=== PATIENT | male | born 1970 | race Caucasian/White ===

== ENCOUNTER 2021-06-19 16:36 | Emergency (ER) | payer BC | END 2021-06-19 18:50 | disposition home or self-care (01) | LOC: CSHERS 16:36 | DX: M25.561 Pain in right knee (principal); M25.461 Effusion, right knee; I10 Essential (primary) hypertension; E11.9 Type 2 diabetes mellitus without complications; E03.9 Hypothyroidism, unspecified; I25.2 Old myocardial infarction; X50.1XXA Overexertion from prolonged static or awkward postures, initial encounter; Y92.003 Bedroom of unspecified non-institutional (private) residence as the place of occurrence of the external cause; Z95.5 Presence of coronary angioplasty implant and graft; Z79.82 Long term (current) use of aspirin; Z79.84 Long term (current) use of oral hypoglycemic drugs; Z79.899 Other long term (current) drug therapy | CPT/HCPCS: 99283 ==

== ENCOUNTER 2021-06-20 16:54 | Inpatient (IN) | payer BC ==
[2021-06-20] MEDS ORDERED: Cefepime 2 GM VIAL ONE (18:35)
[2021-06-20] MEDS ORDERED: Ketorolac Tromethamine 30 MG/ML VIAL ONE (18:35)
[2021-06-20 18:50] LABS: #Eosinphils 0.1 10x3/uL (0.0-0.5); %Basophils 0.3 % (0.0-2.0); %Eosinophils 0.8 % (0.0-6.0); %Lymphocytes 13.1 % (18.0-47.0); %Monocytes 10.2 % (0.0-10.0); %Neutrophils 75.2 % (40.0-75.0); Hemoglobin 13.8 g/dL (13.5-17.5); Mean Corpuscular HGB CONC 34.7 g/dL (32.0-36.0); Mean Corpuscular Hemoglobin 30.8 pg (27.0-33.0); Mean Corpuscular Volume 88.8 fl (81.2-95.1); Mean Platelet Volume 10.9 fl (7.4-10.4); Platelet Count 141 10x3/uL (150-450); Red Blood Cell (RBC) Count 4.48 10x6/uL (4.32-5.72); White Blood Cell (WBC) Count 9.3 10x3/uL (3.5-10.5)
[2021-06-20 18:54] LABS: ALT (SGPT) 19 U/L (8-55); AST (SGOT) 11 U/L (5-34); Albumin 4.2 g/dL (3.5-5.0); Alkaline Phosphatase 57 U/L (40-110); Anion Gap 17 mmol/L (10-20); BUN (Urea Nitrogen) 12 mg/dL (8.4-25.7); Bilirubin, Total 1.8 mg/dL (0.2-1.2); Calc. Creatinine Clearance 157 mL/min (70-130); Calcium 9.2 mg/dL (7.8-10.44); Carbon Dioxide 24 mmol/L (22-29); Chloride 97 mmol/L (98-107); Globulin 2.4 g/dL (2.4-3.5); Glucose 200 mg/dL (70-105); Potassium 3.1 mmol/L (3.5-5.1); Protein, Total 6.6 g/dL (6.0-8.3); Sodium 135 mmol/L (136-145)
[2021-06-20] MEDS ORDERED: VANCOMYCIN 2 GRAM/400 ML BAG 2 GM in Premix Bag 1 BAG IVPB SCH (19:00)
[2021-06-20] MEDS ORDERED: Acetaminophen 325 MG TAB PO PRN (19:56)
[2021-06-20] MEDS ORDERED: Ondansetron PF 4 MG/2 ML Vial IVP PRN (19:56)
[2021-06-20] MEDS ORDERED: Zolpidem Tartrate 5 MG TAB PO PRN (19:56)
[2021-06-20] MEDS ORDERED: Calcium Carbonate 500 MG ChewTAB PO PRN (19:56)
[2021-06-20] MEDS ORDERED: Dextrose 5% in Water 1,000 ML IV PRN (20:00)
[2021-06-20] MEDS ORDERED: Dextrose 50% Abboject 50 ML SYRINGE SLOW IVP PRN (20:00)
[2021-06-20] MEDS ORDERED: hydrALAZINE 20 MG/ML VIAL SLOW IVP PRN (20:01)
[2021-06-20 20:05] LABS: BF Color Yellow; Body Fluid Source Synovial Fluid; Clarity Cloudy/Turbid (Clear); Tube # 1
[2021-06-20] MEDS ORDERED: Potassium Chloride 20 MEQ TAB PO SCH (20:30)
[2021-06-20] MEDS: Rosuvastatin 20 MG TAB PO SCH (21:03)
[2021-06-20] MEDS: HYDROcodone/Acetaminophen 5/325 mg Tablet PO PRN (21:03)
[2021-06-20] MEDS: Lactated Ringer's 1,000 ML IV SCH (21:05)
[2021-06-20] MEDS: Famotidine/PF 20 mg/2ml Vial SLOW IVP SCH (21:05)
[2021-06-20] MEDS: HumaLOG 300 UNITS/3 ML VIAL SC PRN (21:06)
[2021-06-20 21:27] LABS: Lactic Acid 2.3 mmol/L (0.5-2.2)
[2021-06-20] MEDS: Morphine 4 MG/ML VIAL SLOW IVP PRN (23:52)
[2021-06-21 00:03] VITALS: BMI 38.3
[2021-06-21 00:10] LABS: SARS-CoV-2 NAA Rapid Test Not Detected (NotDetected)
[2021-06-21] MEDS: HYDROcodone/Acetaminophen 5/325 mg Tablet PO PRN (00:44)
[2021-06-21] MEDS ORDERED: HYDROmorphone 0.5 MG/0.5 ML SYRINGE SLOW IVP SCH ×2 (01:00→07:15)
[2021-06-21] MEDS: Lactated Ringer's 1,000 ML IV SCH ×3 (04:27→19:28)
[2021-06-21] MEDS: Morphine 4 MG/ML VIAL SLOW IVP PRN ×4 (04:29→23:40)
[2021-06-21] MEDS ORDERED: Cefepime 2 GM in Sodium Chloride 0.9% 100 ML IVPB SCH (06:00)
[2021-06-21] MEDS: Levothyroxine Sodium 112 MCG TAB PO SCH (06:10)
[2021-06-21] MEDS: Levothyroxine Sodium 25 MCG TAB PO SCH (06:10)
[2021-06-21] MEDS: Atenolol 25 MG TAB PO SCH (06:11)
[2021-06-21] MEDS ORDERED: Ketorolac Tromethamine 30 MG/ML VIAL IVP SCH (07:15)
[2021-06-21] MEDS ORDERED: Neomycin-Polymyxin 1 ML AMP ONE ×2 (07:24→08:57)
[2021-06-21] MEDS ORDERED: Bupivacaine PF 0.5% 30 ML VIAL ONE (07:38)
[2021-06-21] MEDS ORDERED: EPINEPHrine 1 MG/ML AMP ONE (07:38)
[2021-06-21] MEDS: VANCOMYCIN 2 GRAM/400 ML BAG 2 GM in Premix Bag 1 BAG IVPB SCH ×2 (07:59→20:22)
[2021-06-21] MEDS: Glimepiride 2 MG TAB PO SCH (07:59)
[2021-06-21] MEDS ORDERED: HYDROcodone/Acetaminophen 5/325 mg Tablet PO PRN (08:00)
[2021-06-21] MEDS ORDERED: Morphine 4 MG/ML VIAL ONE (08:40)
[2021-06-21 08:58] LABS: Lactic Acid 1.9 mmol/L (0.5-2.2)
[2021-06-21 09:05] LABS: ALT (SGPT) 15 U/L (8-55); AST (SGOT) 11 U/L (5-34); Albumin 3.8 g/dL (3.5-5.0); Alkaline Phosphatase 55 U/L (40-110); Anion Gap 17 mmol/L (10-20); BUN (Urea Nitrogen) 9 mg/dL (8.4-25.7); Bilirubin, Total 1.3 mg/dL (0.2-1.2); Calc. Creatinine Clearance 172 mL/min (70-130); Calcium 8.9 mg/dL (7.8-10.44); Carbon Dioxide 26 mmol/L (22-29); Chloride 101 mmol/L (98-107); Globulin 2.3 g/dL (2.4-3.5); Glucose 196 mg/dL (70-105); Potassium 3.6 mmol/L (3.5-5.1); Protein, Total 6.1 g/dL (6.0-8.3); Sodium 140 mmol/L (136-145)
[2021-06-21 09:06] LABS: #Eosinphils 0.1 10x3/uL (0.0-0.5); #Monocytes 1.1 10x3/uL (0.0-1.1); #Neutrophils 5.5 10x3/uL (1.5-8.4); %Basophils 0.4 % (0.0-2.0); %Eosinophils 1.2 % (0.0-6.0); %Lymphocytes 14.6 % (18.0-47.0); %Monocytes 13.4 % (0.0-10.0); Hemoglobin 12.9 g/dL (13.5-17.5); Mean Corpuscular HGB CONC 33.7 g/dL (32.0-36.0); Mean Corpuscular Hemoglobin 30.8 pg (27.0-33.0); Mean Corpuscular Volume 91.4 fl (81.2-95.1); Mean Platelet Volume 11.2 fl (7.4-10.4); Platelet Count 125 10x3/uL (150-450); RBC Distribution Width 12.4 % (11.5-14.5); Red Blood Cell (RBC) Count 4.19 10x6/uL (4.32-5.72); White Blood Cell (WBC) Count 7.8 10x3/uL (3.5-10.5)
[2021-06-21] MEDS ORDERED: PROPOFOL 20 ML ONE (09:48)
[2021-06-21] MEDS ORDERED: Fentanyl 100 MCG/2 ML VIAL ONE (09:48)
[2021-06-21] MEDS ORDERED: Lidocaine 2% PF 5 ML VIAL ONE (09:49)
[2021-06-21] MEDS ORDERED: Dexamethasone 4 mg/ml Vial ONE (10:33)
[2021-06-21] MEDS ORDERED: Ondansetron PF 4 MG/2 ML Vial ONE (10:33)
[2021-06-21] MEDS ORDERED: Ketorolac Tromethamine 30 MG/ML VIAL ONE (10:33)
[2021-06-21] MEDS ORDERED: HYDROmorphone 0.5 MG/0.5 ML SYRINGE ONE (11:27)
[2021-06-21] MEDS ORDERED: HYDROcodone/Acetaminophen 10/325 mg Tablet PO PRN (11:40)
[2021-06-21] MEDS: Amlodipine 10 MG TAB PO SCH (14:38)
[2021-06-21] MEDS: Fish Oil 1,000 MG CAP PO SCH (14:39)
[2021-06-21] MEDS: Famotidine/PF 20 mg/2ml Vial SLOW IVP SCH ×2 (14:39→20:23)
[2021-06-21] MEDS: Venlafaxine XR 37.5 MG CAP PO SCH (14:39)
[2021-06-21] MEDS: Lisinopril 20 MG TAB PO SCH (14:39)
[2021-06-21] MEDS: Aspirin 81 mg Enteric Coated Tablet PO SCH (14:39)
[2021-06-21] MEDS: ceFAZolin Sodium/D5W 2 GM in Premix Bag 1 BAG IVPB SCH ×2 (15:35→22:09)
[2021-06-21] MEDS: HYDROcodone/Acetaminophen 10/325 mg Tablet PO PRN ×2 (16:05→20:27)
[2021-06-21] MEDS: Enoxaparin Sodium 40 MG/0.4 ML SYRINGE SC SCH (20:22)
[2021-06-21] MEDS: Rosuvastatin 20 MG TAB PO SCH (20:23)
[2021-06-21] MEDS: Rifampin 300 MG CAP PO SCH (22:22)
[2021-06-22] MEDS: HumaLOG 300 UNITS/3 ML VIAL SC PRN ×4 (01:22→23:13)
[2021-06-22] MEDS: HYDROcodone/Acetaminophen 10/325 mg Tablet PO PRN ×5 (01:23→17:18)
[2021-06-22] MEDS: Lactated Ringer's 1,000 ML IV SCH (03:19)
[2021-06-22] MEDS: Morphine 4 MG/ML VIAL SLOW IVP PRN ×5 (03:23→23:34)
[2021-06-22 04:41] LABS: Mean Corpuscular HGB CONC 33.7 g/dL (32.0-36.0); Mean Corpuscular Hemoglobin 31.3 pg (27.0-33.0); Mean Corpuscular Volume 92.6 fl (81.2-95.1); Mean Platelet Volume 11.4 fl (7.4-10.4); Platelet Count 124 10x3/uL (150-450); RBC Distribution Width 12.5 % (11.5-14.5); Red Blood Cell (RBC) Count 3.52 10x6/uL (4.32-5.72); White Blood Cell (WBC) Count 5.7 10x3/uL (3.5-10.5)
[2021-06-22] MEDS: Levothyroxine Sodium 112 MCG TAB PO SCH (05:28)
[2021-06-22] MEDS: Levothyroxine Sodium 25 MCG TAB PO SCH (05:28)
[2021-06-22] MEDS: ceFAZolin Sodium/D5W 2 GM in Premix Bag 1 BAG IVPB SCH ×3 (06:20→22:57)
[2021-06-22 07:33] LABS: Vancomycin, Trough 8.6 ug/mL
[2021-06-22] MEDS ORDERED: FLU VACC QS2021-22(6MOS UP)/PF 60 MCG/0.5 ML SYRINGE IM ONE (09:00)
[2021-06-22] MEDS: Fish Oil 1,000 MG CAP PO SCH (09:23)
[2021-06-22] MEDS: Rifampin 300 MG CAP PO SCH ×2 (09:23→22:56)
[2021-06-22] MEDS: Amlodipine 10 MG TAB PO SCH ×2 (09:24→22:55)
[2021-06-22] MEDS: Aspirin 81 mg Enteric Coated Tablet PO SCH (09:24)
[2021-06-22] MEDS: Lisinopril 20 MG TAB PO SCH (09:24)
[2021-06-22] MEDS: Famotidine/PF 20 mg/2ml Vial SLOW IVP SCH ×2 (09:25→22:56)
[2021-06-22] MEDS: Atenolol 25 MG TAB PO SCH (09:25)
[2021-06-22] MEDS: Glimepiride 2 MG TAB PO SCH (09:25)
[2021-06-22] MEDS: Venlafaxine XR 37.5 MG CAP PO SCH (09:25)
[2021-06-22] MEDS: VANCOMYCIN 1.75 GM/350 ML BAG 1.75 GM in Premix Bag 1 BAG IVPB SCH ×2 (09:38→17:19)
[2021-06-22] MEDS: Ketorolac Tromethamine 30 MG/ML VIAL IVP SCH ×2 (11:58→17:44)
[2021-06-22] MEDS ORDERED: tiZANidine HCl 4 MG TAB PO PRN (14:27)
[2021-06-22] MEDS ORDERED: Morphine 50 MG in Sodium Chloride 0.9% 45 ML IVPB SCH (14:45)
[2021-06-22] MEDS ORDERED: diphenhydrAMINE 50 MG/ML VIAL IM/IV PRN (15:30)
[2021-06-22] MEDS ORDERED: Promethazine HCl 25 MG/ML VIAL IM PRN (15:30)
[2021-06-22] MEDS ORDERED: diphenhydrAMINE 25 MG CAP PO PRN (15:30)
[2021-06-22] MEDS: Senokot S 8.6-50 MG TAB PO PRN (17:19)
[2021-06-22] MEDS: Enoxaparin Sodium 40 MG/0.4 ML SYRINGE SC SCH (22:56)
[2021-06-22] MEDS: Rosuvastatin 20 MG TAB PO SCH (22:56)
[2021-06-23] MEDS: Senokot S 8.6-50 MG TAB PO PRN (00:18)
[2021-06-23] MEDS: Ketorolac Tromethamine 30 MG/ML VIAL IVP SCH ×5 (00:35→23:13)
[2021-06-23] MEDS: VANCOMYCIN 1.75 GM/350 ML BAG 1.75 GM in Premix Bag 1 BAG IVPB SCH (01:00)
[2021-06-23] MEDS: Morphine 4 MG/ML VIAL SLOW IVP PRN ×5 (02:58→21:01)
[2021-06-23] MEDS ORDERED: Morphine 4 MG/ML VIAL SLOW IVP SCH (03:30)
[2021-06-23 05:44] LABS: Anion Gap 14 mmol/L (10-20); BUN (Urea Nitrogen) 9 mg/dL (8.4-25.7); Calc. Creatinine Clearance 159 mL/min (70-130); Calcium 8.4 mg/dL (7.8-10.44); Carbon Dioxide 29 mmol/L (22-29); Chloride 97 mmol/L (98-107); Glucose 294 mg/dL (70-105); Sodium 136 mmol/L (136-145)
[2021-06-23 06:03] LABS: Hemoglobin 10.7 g/dL (13.5-17.5); Mean Corpuscular HGB CONC 33.4 g/dL (32.0-36.0); Mean Corpuscular Hemoglobin 31.1 pg (27.0-33.0); Mean Platelet Volume 11.5 fl (7.4-10.4); Platelet Count 133 10x3/uL (150-450); RBC Distribution Width 12.6 % (11.5-14.5); Red Blood Cell (RBC) Count 3.44 10x6/uL (4.32-5.72); White Blood Cell (WBC) Count 4.1 10x3/uL (3.5-10.5)
[2021-06-23] MEDS: ceFAZolin Sodium/D5W 2 GM in Premix Bag 1 BAG IVPB SCH ×3 (06:46→21:10)
[2021-06-23] MEDS: HYDROcodone/Acetaminophen 10/325 mg Tablet PO PRN ×5 (06:55→23:06)
[2021-06-23] MEDS: Glimepiride 2 MG TAB PO SCH (06:56)
[2021-06-23] MEDS: Levothyroxine Sodium 112 MCG TAB PO SCH (06:56)
[2021-06-23] MEDS: HumaLOG 300 UNITS/3 ML VIAL SC PRN ×4 (06:56→21:17)
[2021-06-23] MEDS: Levothyroxine Sodium 25 MCG TAB PO SCH (06:56)
[2021-06-23 07:08] LABS: Band 13 % (5-11); Eosinophils 1 % (0-10); Lymphocytes 23 % (21-51); Neutrophil 45 % (42-75); Reactive Lymphocytes 3 % (0-10)
[2021-06-23 07:09] LABS: Monocytes 13 % (0-10)
[2021-06-23 07:10] LABS: Large Platelets SLIGHT; Platelet Morphology Comment Appears Decreased
[2021-06-23 07:12] LABS: MDiff Complete? YES; RBC Morphology Normal
[2021-06-23 08:03] LABS: Vancomycin, Trough 21.1 ug/mL
[2021-06-23] MEDS ORDERED: LEVOTHYROXINE SODIUM 137 MCG PO SCH (09:00)
[2021-06-23] MEDS ORDERED: Fish Oil 1,000 MG CAP PO SCH (09:00)
[2021-06-23] MEDS: Clopidogrel Bisulfate 75 MG TAB PO SCH (09:03)
[2021-06-23] MEDS: Venlafaxine HCl XR 75 MG CAP PO SCH (09:03)
[2021-06-23] MEDS: Lisinopril 20 MG TAB PO SCH (09:03)
[2021-06-23] MEDS: Rifampin 300 MG CAP PO SCH ×2 (09:03→21:08)
[2021-06-23] MEDS: Fish Oil 1,000 MG CAP PO SCH (09:03)
[2021-06-23] MEDS: Aspirin 81 mg Enteric Coated Tablet PO SCH (09:04)
[2021-06-23] MEDS: Famotidine/PF 20 mg/2ml Vial SLOW IVP SCH ×2 (09:04→21:04)
[2021-06-23] MEDS: Amlodipine 10 MG TAB PO SCH ×2 (09:04→21:06)
[2021-06-23] MEDS: Atenolol 50 MG TAB PO SCH (09:04)
[2021-06-23] MEDS: Vancomycin 1.5 GRAM/300 ML BAG 1.5 GM in Premix Bag 1 BAG IVPB SCH (17:03)
[2021-06-23] MEDS: Rosuvastatin 20 MG TAB PO SCH (21:08)
[2021-06-23] MEDS: Enoxaparin Sodium 40 MG/0.4 ML SYRINGE SC SCH (21:10)
[2021-06-24] MEDS: Morphine 4 MG/ML VIAL SLOW IVP PRN ×4 (01:15→17:47)
[2021-06-24] MEDS: Vancomycin 1.5 GRAM/300 ML BAG 1.5 GM in Premix Bag 1 BAG IVPB SCH ×2 (01:15→09:27)
[2021-06-24] MEDS: HYDROcodone/Acetaminophen 10/325 mg Tablet PO PRN ×3 (03:05→20:11)
[2021-06-24] MEDS: HumaLOG 300 UNITS/3 ML VIAL SC PRN ×4 (05:18→20:34)
[2021-06-24] MEDS: ceFAZolin Sodium/D5W 2 GM in Premix Bag 1 BAG IVPB SCH ×3 (05:26→22:05)
[2021-06-24] MEDS: Levothyroxine Sodium 25 MCG TAB PO SCH (06:01)
[2021-06-24] MEDS: Levothyroxine Sodium 112 MCG TAB PO SCH (06:01)
[2021-06-24] MEDS: Ketorolac Tromethamine 30 MG/ML VIAL IVP SCH ×3 (06:08→18:29)
[2021-06-24 06:19] LABS: Hemoglobin 10.9 g/dL (13.5-17.5); Mean Corpuscular HGB CONC 32.2 g/dL (32.0-36.0); Mean Corpuscular Hemoglobin 30.8 pg (27.0-33.0); Mean Corpuscular Volume 95.5 fl (81.2-95.1); Mean Platelet Volume 11.7 fl (7.4-10.4); Platelet Count 173 10x3/uL (150-450); RBC Distribution Width 12.5 % (11.5-14.5); Red Blood Cell (RBC) Count 3.54 10x6/uL (4.32-5.72)
[2021-06-24] MEDS: Clopidogrel Bisulfate 75 MG TAB PO SCH (09:18)
[2021-06-24] MEDS: Fish Oil 1,000 MG CAP PO SCH (09:18)
[2021-06-24] MEDS: Lisinopril 20 MG TAB PO SCH (09:19)
[2021-06-24] MEDS: Amlodipine 10 MG TAB PO SCH ×2 (09:19→20:11)
[2021-06-24] MEDS: Venlafaxine HCl XR 75 MG CAP PO SCH (09:19)
[2021-06-24] MEDS: Aspirin 81 mg Enteric Coated Tablet PO SCH (09:20)
[2021-06-24] MEDS: Atenolol 50 MG TAB PO SCH (09:20)
[2021-06-24] MEDS: Glimepiride 2 MG TAB PO SCH (09:21)
[2021-06-24] MEDS: Famotidine/PF 20 mg/2ml Vial SLOW IVP SCH ×2 (09:22→20:10)
[2021-06-24] MEDS: Rifampin 300 MG CAP PO SCH ×2 (09:28→22:06)
[2021-06-24 11:14] LABS: Fungus Stain Final report (.)
[2021-06-24] MEDS ORDERED: Morphine 4 MG/ML VIAL SLOW IVP PRN (15:55)
[2021-06-24 16:19] LABS: Vancomycin, Trough 22.2 ug/mL
[2021-06-24] MEDS: Enoxaparin Sodium 40 MG/0.4 ML SYRINGE SC SCH (20:10)
[2021-06-24] MEDS: Rosuvastatin 20 MG TAB PO SCH (20:10)
[2021-06-25] MEDS: Morphine 4 MG/ML VIAL SLOW IVP PRN ×3 (00:26→13:06)
[2021-06-25] MEDS: Ketorolac Tromethamine 30 MG/ML VIAL IVP SCH ×4 (01:40→17:16)
[2021-06-25] MEDS: ceFAZolin Sodium/D5W 2 GM in Premix Bag 1 BAG IVPB SCH (06:34)
[2021-06-25] MEDS: Levothyroxine Sodium 112 MCG TAB PO SCH (06:35)
[2021-06-25] MEDS: Levothyroxine Sodium 25 MCG TAB PO SCH (06:35)
[2021-06-25] MEDS: Glimepiride 4 MG TAB PO SCH (07:54)
[2021-06-25] MEDS ORDERED: Nitroglycerin 0.4 MG TAB (25 Tab Bottle) SL PRN (08:54)
[2021-06-25] MEDS: Venlafaxine HCl XR 75 MG CAP PO SCH (09:44)
[2021-06-25] MEDS: Clopidogrel Bisulfate 75 MG TAB PO SCH (09:45)
[2021-06-25] MEDS: Aspirin 81 mg Enteric Coated Tablet PO SCH (09:45)
[2021-06-25] MEDS: Amlodipine 10 MG TAB PO SCH ×2 (09:45→22:29)
[2021-06-25] MEDS: Lisinopril 20 MG TAB PO SCH (09:45)
[2021-06-25] MEDS: Famotidine/PF 20 mg/2ml Vial SLOW IVP SCH ×2 (09:45→22:18)
[2021-06-25] MEDS: Fish Oil 1,000 MG CAP PO SCH (09:45)
[2021-06-25] MEDS: HYDROcodone/Acetaminophen 10/325 mg Tablet PO PRN ×3 (09:46→22:30)
[2021-06-25] MEDS: Rifampin 300 MG CAP PO SCH ×2 (09:49→22:29)
[2021-06-25] MEDS: Atenolol 50 MG TAB PO SCH (09:49)
[2021-06-25] MEDS ORDERED: Lidocaine 1% PF 5 ML VIAL ONE (10:54)
[2021-06-25] MEDS ORDERED: Sodium Bicarbonate 2.5 MEQ/5 ML VIAL ONE (10:55)
[2021-06-25] MEDS: HumaLOG 300 UNITS/3 ML VIAL SC PRN ×2 (13:05→18:14)
[2021-06-25] MEDS: CEFAZOLIN 2 GM in Premix Bag 1 BAG IVPB SCH ×2 (14:41→22:23)
[2021-06-25] MEDS ORDERED: Rosuvastatin 20 MG TAB PO SCH (21:00)
[2021-06-25] MEDS: Enoxaparin Sodium 40 MG/0.4 ML SYRINGE SC SCH (22:21)
[2021-06-26] MEDS: Ketorolac Tromethamine 30 MG/ML VIAL IVP SCH ×3 (00:45→15:11)
[2021-06-26] MEDS: CEFAZOLIN 2 GM in Premix Bag 1 BAG IVPB SCH ×2 (05:21→15:12)
[2021-06-26] MEDS: Levothyroxine Sodium 112 MCG TAB PO SCH (05:22)
[2021-06-26] MEDS: Levothyroxine Sodium 25 MCG TAB PO SCH (05:23)
[2021-06-26] MEDS: HumaLOG 300 UNITS/3 ML VIAL SC PRN (05:33)
[2021-06-26] MEDS: HYDROcodone/Acetaminophen 10/325 mg Tablet PO PRN (09:26)
[2021-06-26] MEDS: Atenolol 50 MG TAB PO SCH (09:27)
[2021-06-26] MEDS: Aspirin 81 mg Enteric Coated Tablet PO SCH (09:27)
[2021-06-26] MEDS: Amlodipine 10 MG TAB PO SCH (09:27)
[2021-06-26] MEDS: Glimepiride 4 MG TAB PO SCH (09:27)
[2021-06-26] MEDS: Clopidogrel Bisulfate 75 MG TAB PO SCH (09:28)
[2021-06-26] MEDS: Lisinopril 20 MG TAB PO SCH (09:28)
[2021-06-26] MEDS: Rifampin 300 MG CAP PO SCH (09:28)
[2021-06-26] MEDS: Venlafaxine HCl XR 75 MG CAP PO SCH (09:29)
[2021-06-26] MEDS: Fish Oil 1,000 MG CAP PO SCH (09:29)
[2021-06-26] MEDS: Famotidine/PF 20 mg/2ml Vial SLOW IVP SCH (09:29)
[2021-06-26 12:32] VITALS: BP 160/87; TEMP 98.8
== END 2021-06-26 16:45 | disposition home health service (06) | DRG 485 ==
LOC: CSHERS 16:54 → CSHTELE 19:01
PROVIDERS: ADMIT Student in an Organized Health Care Education/Training Program; ATTEND Hospitalist
PROC: 0S9C3ZZ Drainage of Right Knee Joint, Percutaneous Approach (ICD-10-PCS; 2021-06-20)
PROC: 0SPC09Z Removal of Liner from Right Knee Joint, Open Approach (ICD-10-PCS; principal; 2021-06-21)
PROC: 0SUV09Z Supplement Right Knee Joint, Tibial Surface with Liner, Open Approach (ICD-10-PCS; 2021-06-21)
PROC: 02HV33Z Insertion of Infusion Device into Superior Vena Cava, Percutaneous Approach (ICD-10-PCS; 2021-06-25)
PROC: B5181ZA Fluoroscopy of Superior Vena Cava using Low Osmolar Contrast, Guidance (ICD-10-PCS; 2021-06-25)
PROC: B548ZZA Ultrasonography of Superior Vena Cava, Guidance (ICD-10-PCS; 2021-06-25)
DX: T84.53XA Infection and inflammatory reaction due to internal right knee prosthesis, initial encounter (principal); A41.01 Sepsis due to Methicillin susceptible Staphylococcus aureus; R65.20 Severe sepsis without septic shock; E87.2 Acidosis; M00.061 Staphylococcal arthritis, right knee; I10 Essential (primary) hypertension; E11.65 Type 2 diabetes mellitus with hyperglycemia; E03.9 Hypothyroidism, unspecified; E87.6 Hypokalemia; I25.10 Atherosclerotic heart disease of native coronary artery without angina pectoris; G89.29 Other chronic pain; Z96.651 Presence of right artificial knee joint; E78.2 Mixed hyperlipidemia; Z20.822 Contact with and (suspected) exposure to COVID-19; Y83.1 Surgical operation with implant of artificial internal device as the cause of abnormal reaction of the patient, or of later complication, without mention of misadventure at the time of the procedure; E66.01 Morbid (severe) obesity due to excess calories; Z79.82 Long term (current) use of aspirin; Z79.899 Other long term (current) drug therapy; Z79.84 Long term (current) use of oral hypoglycemic drugs; Z95.5 Presence of coronary angioplasty implant and graft; I25.2 Old myocardial infarction; Z79.02 Long term (current) use of antithrombotics/antiplatelets; Z68.38 Body mass index [BMI] 38.0-38.9, adult; M25.561 Pain in right knee; M25.461 Effusion, right knee; X50.1XXA Overexertion from prolonged static or awkward postures, initial encounter; Y92.003 Bedroom of unspecified non-institutional (private) residence as the place of occurrence of the external cause
CPT/HCPCS: 20610; 36415; 36416; 36569; 80048; 80053; 80202; 82945; 83605; 84157; 85025; 85027; 87040; 87070; 87077; 87102; 87149; 87186; 87205; 87206; 89051; 89060; 94760; 96365; 96367; 96375; 99283; C1751; J0171; J0360; J0690; J0692; J1100; J1170; J1650; J1815; J1885; J2001; J2270; J2405; J2704; J3010; J3370; J3490; J7120; S0020; S0028; U0002

== ENCOUNTER 2022-01-15 14:14 | Emergency (ER) | payer OTHER, BC ==
[2022-01-15] MEDS ORDERED: HYDROmorphone 0.5 MG/0.5 ML SYRINGE ONE (15:36)
[2022-01-15] MEDS ORDERED: Morphine 4 MG/ML VIAL ONE ×2 (16:06→17:39)
[2022-01-15] MEDS ORDERED: Ondansetron ODT 4 MG TAB ONE (16:07)
[2022-01-15] MEDS ORDERED: ceFAZolin 2 GM/Dextrose 50 ML IVPB ONE (16:16)
[2022-01-15 16:54] LABS: #Basophils 0.1 10x3/uL (0.0-0.2); #Eosinphils 0.6 10x3/uL (0.0-0.5); #Monocytes 0.4 10x3/uL (0.0-1.1); #Neutrophils 2.4 10x3/uL (1.5-8.4); %Basophils 1.6 % (0.0-2.0); %Eosinophils 11.5 % (0.0-6.0); %Lymphocytes 31.1 % (18.0-47.0); %Monocytes 8.4 % (0.0-10.0); Mean Corpuscular HGB CONC 32.9 g/dL (32.0-36.0); Mean Corpuscular Volume 88.2 fl (81.2-95.1); Mean Platelet Volume 10.1 fl (7.4-10.4); Platelet Count 291 10x3/uL (150-450); RBC Distribution Width 13.6 % (11.5-14.5); Red Blood Cell (RBC) Count 4.14 10x6/uL (4.32-5.72); White Blood Cell (WBC) Count 5.1 10x3/uL (3.5-10.5)
[2022-01-15 17:07] LABS: ALT (SGPT) 15 U/L (8-55); AST (SGOT) 15 U/L (5-34); Albumin 4.1 g/dL (3.5-5.0); Alkaline Phosphatase 70 U/L (40-110); Anion Gap 16 mmol/L (10-20); BUN (Urea Nitrogen) 20 mg/dL (8.4-25.7); Bilirubin, Total 0.4 mg/dL (0.2-1.2); Calc. Creatinine Clearance 0 mL/min (70-130); Calcium 9.8 mg/dL (7.8-10.44); Carbon Dioxide 24 mmol/L (22-29); Chloride 103 mmol/L (98-107); Globulin 3.2 g/dL (2.4-3.5); Glucose 184 mg/dL (70-105); Potassium 4.4 mmol/L (3.5-5.1); Protein, Total 7.3 g/dL (6.0-8.3); Sodium 139 mmol/L (136-145)
[2022-01-15] MEDS ORDERED: Gabapentin 300 MG CAP ONE (17:49)
== END 2022-01-15 18:45 | disposition short-term general hospital (02) ==
LOC: CSHERS 14:14
DX: T81.33XA Disruption of traumatic injury wound repair, initial encounter (principal); I10 Essential (primary) hypertension; E11.9 Type 2 diabetes mellitus without complications; E03.9 Hypothyroidism, unspecified; I25.2 Old myocardial infarction; W01.10XA Fall on same level from slipping, tripping and stumbling with subsequent striking against unspecified object, initial encounter; Y92.002 Bathroom of unspecified non-institutional (private) residence as the place of occurrence of the external cause; Z89.611 Acquired absence of right leg above knee
CPT/HCPCS: 36415; 80053; 85025; 96365; 96372; 96375; J0690; J1170; J2270; Q0162

== ENCOUNTER 2022-11-03 08:36 | Outpatient (CLI) | payer BC | END 2022-11-03 08:37 | disposition home or self-care (01) | LOC: CSHULT 08:36 | PROVIDERS: ATTEND Orthopaedic Surgery | DX: Z96.652 Presence of left artificial knee joint (principal) ==